=== PATIENT | male | born 1995 | race Caucasian/White ===

== ENCOUNTER 2021-04-22 19:41 | Emergency (ER) | payer OTHER ==
[~2021-04-22] VITALS: Ht 182.9 cm; Wt 77.1 kg
--- NOTE | ~2021-04-22 | EMS ---
[address] [address] EMS Patient Care Report Name: MITCH MENENDEZ Room #: DEP HALLEY Hollingsworth#: [id number] Admission: 04/22/21 Attend Phys: Discharge: 04/23/21 Date of : [birth year] Report #: [id number] THIS REPORT FOR: //name// Report Transmitted: 04/25/2021 07:57 EMS Care Summary [place], [place]/[facility] Incident [id number] @ 04/22/2021 18:38 Incident Location [address] [place] [address] Patient MITCH MENENDEZ Male, 25 Years 1995 Patient Address [address] [place] [address] Patient History None Reported, Patient Allergies No known allergies, Patient Medications None Reported, Chief Complaint psychiatric Disposition Transported No Lights/[place] Dispatch Reason Psychiatric Problem/Abnormal Behavior/Suicide Attempt Transported To [facility] Narrative M34 was dispatched to a residence for a psychiatric. M34 arrived on scene to find the patient sitting outside with police and the pumper crew. The patient was complaining of SI and ETOH. The patient had made statements to the pumper crew that he did not want to live anymore. The patient at first was slightly [address] [address] EMS Patient Care Report Name: MITCH MENENDEZ Room #: DEP ER Darrick#: [id number] Admission: 04/22/21 Attend Phys: Discharge: 04/23/21 Date of : [birth year] Report #: [id number] combative with the crew. Talking to him in a calm voice he managed to calm down. He would answer questions but would be triggered by certain words where he would go off a tangent and sometime begin to become combative. The patient denied any chest pain, shortness of breath, cough, fever, dizziness, nausea, vomiting or weakness. The patient was assisted to the ambulance where he was placed on the cot and secured with seat belts. The patient was still calm and cooperative. When it was mentioned what hospital he was going to he became combative and ripped off the pulse ox and blood pressure cuff. He then undid his seat belts and got up. He squared up for a second then opened up the door and took off. The police officers on scene detained the patient with handcuffs. He was returned to the ambulance with the police presents, placed back on the cot and secured with seat belts. The patient was then transported to the hospital. En route vitals were obtained. The patient was calm during transport and stated that he was already now because he screwed up. He also went off on a tangent about him being the anti-dorie. He also explained that he wanted to because he is stressed about life and money. The patient continued to remain calm and apologize for his actions earlier. Upon arrival to the hospital the patient became combative again when he saw the sick people and thought that he did not need to be at the hospital. The patient was calmed down and moved over to the bed without assistance and report was given to the nurse at bedside. Initial Vitals @19:29P: 98,R: 18,BP: 124/78,Pain: 0/10,GCS: 15,SpO2: 99,Revised Trauma: 12, @19:22P: 103,R: 18,BP: 143/120,Pain: 0/10,GCS: 15,SpO2: 96,Revised Trauma: 12, Assessments @19:07MENTAL:Combative,Hallucinations,SKIN:HEENT:Head/Face: No Abnormalities,Neck/Airway: No Abnormalities,LUNG SOUNDS:General: No Abnormalities,ABDOMEN:General: No Abnormalities,PELVIS//GI:No Abnormalities,EXTREMITIES:Left Arm: No Abnormalities,Right Arm: No Abnormalities,Left Leg: No Abnormalities,Right Leg: No Abnormalities,PULSE:NEURO:No Abnormalities, Impression Behavioral/psychiatric episode Procedures @19:07 ALS Assessment Response: UnchangedSucceeded @19:20 Patient Restraint Response: UnchangedSucceeded Timeline 18:35,Call Received 18:35,Dispatch Notified 18:38,Dispatched [address] [address] EMS Patient Care Report Name: MITCH MENENDEZ Room #: DEP HALLEY Hollingsworth#: [id number] Admission: 04/22/21 Attend Phys: Discharge: 04/23/21 Date of : [birth year] Report #: [id number] 18:38,En Route 19:06,On Scene 19:07,At Patient 19:07,ALS Assessment,Response: UnchangedSucceeded, 19:20,Patient Restraint,Response: UnchangedSucceeded, 19:22,BP: 143/120 M,PULSE: 103,RR: 18 R,SPO2: 96 Ox,ETCO2: ,BG: ,PAIN: 0,GCS: 15, 19:23,Depart Scene 19:29,BP: 124/78 M,PULSE: 98,RR: 18 R,SPO2: 99 Ox,ETCO2: ,BG: ,PAIN: 0,GCS: 15, 19:38,At Destination 19:56,Call Closed Disclaimer v1.1 Copyright 2020 [employer] This EMS Care Summary contains data elements from the applicable legal record (which may be displayed differently). It is designed to provide pertinent information for the following purposes: continuity of care, clinical quality, and state data reporting. The complete legal record is available to ED staff and administrators of the receiving hospital in [employer]'s Patient Tracker. All data is provided "as is."
[~2021-04-22 19:41] MED LIST: ACETAMINOPHEN-1 EAC1 PO; CIPROFLOXACIN500 M1 PO; DOXYCYCLINE 10100 MG PO; IBUPROFEN 600600 M1 PO; IBUPROFEN 800800 MG PO; NORCO 5-325 TA1 EACH PO
[2021-04-22 20:41] LABS: ABSOLUTE NEUTROPHILS 5.2 thou/uL (1.4-8.2); BASOPHILS 0.4 % (0.0-2.0); EOSINOPHILS 0.1 % (0.0-3.0); HEMATOCRIT 45.3 % (42.0-52.0); LYMPHOCYTES 24.2 % (24.0-44.0); MCH 31.9 pg (26.0-34.0); MCHC 35.3 g/dL (28.0-37.0); MCV 90.6 fL (80.0-100.0); MONOCYTES 7.2 % (1.0-8.0); PLATELET COUNT 199 thou/uL (150-400); POLYS 68.1 % (36.0-66.0); RDW 12.9 % (10.5-14.5); WBC 7.6 thou/uL (4.0-11.0)
[2021-04-22 20:53] LABS: CALCIUM 8.7 mg/dL (8.5-10.1); CREATININE 0.8 mg/dL (0.7-1.3); POTASSIUM 3.7 mmol/L (3.5-5.1)
[2021-04-23 00:05] VITALS: BP 113/66
[2021-04-23 00:06] LABS: AMP/METHAMP Negative (Negative); BARBITURATES Negative (Negative); BENZODIAZEPINES Negative (Negative); COCAINE Negative (Negative); METHADONE Negative (Negative); OPIATES Negative (Negative); PCP Negative (Negative)
== END 2021-04-23 00:05 | disposition home or self-care (01) ==
LOC: ER 19:41
PROVIDERS: Emergency Medicine
DX: F10.10 Alcohol abuse, uncomplicated (principal); Z20.822 Contact with and (suspected) exposure to COVID-19; Z79.899 Other long term (current) drug therapy; Y90.8 Blood alcohol level of 240 mg/100 ml or more